=== PATIENT | male | born 1995 | race Two or more races ===

== ENCOUNTER 2024-02-17 10:55 | Outpatient (AMB) | payer OTHER, SELFPAY ==
--- NOTE | 2024-02-17 11:27 | MHC.OFFWIV ---
Intake Vital Signs 02/17/24 11:28 Height 5 ft 11 in Weight 293 lb BMI 40.9 BP 130/90 H Blood Pressure Location Rt brachial Position Sitting Pulse 133 H Pulse Source Pulse Oximeter Temp 98.5 F Temp Source Oral Pulse Oximetry (%) 99 Oxygen Delivery Method Room Air Intake Visit Reasons: Runny nose, Congestion, Sore throat Intake Note: Patient here to get a work note as he was out for three days w/ runny nose, congestion and sore throat which was present for about 4 days. pt states he no longer has most symptoms but still is congested. Patient Tobacco Use Status: Never used Tobacco Allergies No Known Allergies Allergy (Verified 02/17/24 11:29) Do you need a note to return to daycare/school/sports/work: Yes HPI HPI Comments History of Present Illness Details Patient is a 28-year-old male complaining of 6 days of a sore throat, runny nose and head congestion. He states he went to [place] and he thinks he picked something up while he was there. He states he did test for COVID but was negative; he denies any sick contacts. He did call out from work sick starting last Saturday but feels much better now and needs a return to work note. Patient denies any medical history or taking any medications that could affect his heart rate, he states he has never been diagnosed with a thyroid disorder. FORMERLY [facility], [facility] Social History Patient Tobacco Use Status: Never used Tobacco Review of Systems Const All systems reviewed & are unremarkable except as noted in HPI and below Physical Exam Vital Signs: Last Vital Signs Temp 98.5 F 02/17/24 11:28 Pulse 133 H 02/17/24 11:28 BP 130/90 H 02/17/24 11:28 Pulse Ox 99 02/17/24 11:28 Oxygen Delivery Method Room Air 02/17/24 11:28 BMI result Body Mass Index 40.9 Const General: cooperative, healthy appearing, comfortable, no acute distress and well developed Orientation/consciousness: patient oriented x3 Limitations: no limitations HEENT Head: Yes normal to inspection Eyes General: appearance normal, both eyes and all related structures Neck Neck: Yes normal visual inspection and Yes full ROM Resp Effort & Inspection: normal respiratory effort and able to speak in complete sentences Skin General skin exam: no rashes or lesions noted Neuro General: patient oriented x3 Extrem General: Yes normal to inspection Assessment & Plan Assessment & Plan (1) URI (upper respiratory infection): Code(s): J06.9 - Acute upper respiratory infection, unspecified Qualifiers: URI type: unspecified viral URI Qualified Code(s): J06.9 - Acute upper respiratory infection, unspecified Plan: Heart rate is 133 upon recheck, it is regular, pt is well appearing on exam. Our records show he is on Focalin, and his elevated heart rate could be secondary to this medication. I recommended he follow up with his PCP as soon as possible. He tells me he does not have a primary care doctor but he has an appointment to establish care but not until next year. He states it is with the [facility] doctor but I do not see an appointment. I did send a message to the clerical and office support workers at [employer] to try to get him to establish care with one of the new PAs as soon as possible so he could have a workup for his tachycardia. Also wrote work note as patient requested. Plan See above Coding Level of Care Code New Pt Level 3 (30885) Diagnoses Viral upper respiratory tract infection J06.9 URI type: unspecified viral URI
[2024-02-17 11:28] VITALS: BP 130/90; PULSE 133; TEMP 36.9; O2SAT 99; BMI 40.9
== END 2024-02-17 12:22 | disposition home or self-care (01) ==
PROVIDERS: PCP Internal Medicine; Visit Provider Physician Assistant
DX: J06.9 Acute upper respiratory infection, unspecified (principal)
CPT/HCPCS: 99203

== ENCOUNTER 2025-06-14 11:42 | Emergency (ER) | payer OTHER, SELFPAY ==
--- OUTSIDE RECORDS SUMMARY | 2025-06-13 17:28 | XMS_ITS | Continuity of Care Document ---
Author Organization [facility] ter Address [address] [place] [id number]- Care Team Providers Care Vice President Network Development Name Role Phone Not on Staff, PCP Primary Care Physician Unavail able Encounter [facility] Date(s): 06/13/25 - 06/13/[address] [address]- Discharge Disposition: A-D/C Walkout Attending Physician: Not on Staff, Attending MD Admitting Physician: Not on Staff, Admitting MD Referring Physician: Not on Staff, Referring MD Encounter Type: Disch ES Allergies, Adverse Reactions, Alerts No Known Allergies Immunizations Given and Recorded Vaccine Date Status Refusal Reason influenza virus vaccine, inactivated 05/30/15 Give n influenza virus vaccine, inactivated 08/13/13 Give n influenza virus vaccine, inactivated 06/06/11 Give n influenza virus vaccine, inactivated 1 04/21/09 [facility] [place] Human Papillomavirus Vaccine 11/24/14 Given Human Papillomavirus Vaccine 08/13/13 Given Meningococcal Conjugate Vaccine 08/13/13 Given Meningococcal Conjugate Vaccine 2 11/13/07 Given influenza virus vaccine, live 3 04/21/09 Given Hepatitis B Vaccine (old term) 4 01/12/08 Given Varicella Virus Vaccine 5 11/13/07 Given Varicella Virus Vaccine 6 09/04/07 Given tetanus/diphtheria/pertussis, acel(Tdap) 7 08/02/06 Given Poliovirus Vaccine, Inactivated 8 07/25/99 Given Poliovirus Vaccine, Inactivated 9 06/05/96 Given Poliovirus Vaccine, Inactivated 10 95 Given Poliovirus Vaccine, Inactivated 11 95 Given diphtheria/tetanus/pertussis, acel(DTaP) 12 07/25/99 Given diphtheria/tetanus/pertussis, acel(DTaP) 13 10/09/96 Given diphtheria/tetanus/pertussis, acel(DTaP) 14 95 Given diphtheria/tetanus/pertussis, acel(DTaP) 15 95 Given diphtheria/tetanus/pertussis, acel(DTaP) 16 95 Given Measles/Mumps/Rubella Virus Vaccine 17 02/09/98 [facility] [place] Measles/Mumps/Rubella Virus Vaccine 18 06/15/96 [facility] [place] Haemophilus B conjugate (HbOC) vaccine 19 10/09/96 Given Haemophilus B conjugate (HbOC) vaccine 20 95 Given Haemophilus B conjugate (HbOC) vaccine 21 95 Given Haemophilus B conjugate (HbOC) vaccine 22 95 Given hepatitis B pediatric vaccine 23 95 Given hepatitis B pediatric vaccine 24 95 Given hepatitis B pediatric vaccine 25 95 Given 1Admin Note: VIS 02/15/2009 2Admin Note: VIS 05/13 3Admin Note: VIS 04/08/09 given 4Admin Note: VIS 01/15/01 ADM BY NELLIE Giang RN 5Admin Note: VIS 07/14 6Admin Note: GIVEN BY NURSE 7Admin Note: GIVEN BY NURSE 8Admin Note: GIVEN BY NURSE 9Admin Note: GIVEN BY NURSE 10Admin Note: GIVEN BY NURSE 11Admin Note: GIVEN BY NURSE 12Admin Note: GIVEN BY NURSE 13Admin Note: GIVEN BY NURSE 14Admin Note: GIVEN BY NURSE 15Admin Note: GIVEN BY NURSE 16Admin Note: GIVEN BY NURSE 17Admin Note: GIVEN BY NURSE 18Admin Note: GIVEN BY NURSE 19Admin Note: GIVEN BY NURSE 20Admin Note: GIVEN BY NURSE 21Admin Note: GIVEN BY NURSE 22Admin Note: GIVEN BY NURSE 23Admin Note: GIVEN BY NURSE 24Admin Note: GIVEN BY NURSE 25Admin Note: GIVEN BY NURSE Medications Alcohol Pads See Instructions, # 2 box, Refills 9, Tot. Refills 9, Maintenance, 1mo., 07/22/15 10:57:01 AM EST, Compound Start Date: 07/22/15 Stop Date: 05/17/16 Status: Ordered Medication Dispense Status: Completed Quantity: 2.0 Unit: box Total Allowed Fills: 10 Fills Dispensed: 0 Indications: Type 2 diabetes mellitus without complications; Alcohol Pads See Instructions, # 200 each, Refills 5, Tot. Refills 5, Maintenance, use as directed for Diabetes Mellitus, 10/16/16 11:20:00 AM EDT, Dx E11.65, Compound Start Date: 10/16/16 Stop Date: 04/14/17 Status: Ordered Medication Dispense Status: Completed Quantity: 200.0 Unit: each Total Allowed Fills: 6 Fills Dispensed: 0 benzoyl peroxide topical 5% gel 1 application, Topically, Daily, # 45 Gm, 5 Refills, Maintenance, 02/21/15 3:51:03 PM EDT, Gel, [facility]/pharmacy #[id number], 1 application Topically Daily Start Date: 02/21/15 Status: Ordered Medication Dispense Status: Completed Quantity: 45.0 Unit: g Total Allowed Fills: 6 Fills Dispensed: 0 Carafate 1 gm oral tablet 1 Gm, 1, tablet, By Mouth, 4 times a day, PRN, # 28 tablet, Refills 0, Tot. Refills 0, Maintenance,Indigestion, 01/23/25 5:53:00 PM EDT, Route to Pharmacy Electronically, [facility]/pharmacy #[id number], Partial fill upon patient request if the prescription is for a schedule II opioid drug., 179, cm, 01/23/25 14:25:00 EDT, Height, 116, kg, 01/23/25 14:25:00 EDT, Dry Weight Start Date: 01/23/25 Stop Date: 01/30/25 Status: Ordered Medication Dispense Status: Completed Quantity: 28.0 Unit: tablet Total Allowed Fills: 1 Fills Dispensed: 0 cetirizine 10 mg oral tablet 1 tablet = 10 mg, By Mouth, Daily, PRN allergy S/Sx, # 30 tablet, 5 Refills, Maintenance, 02/21/15 3:52:18 PM EDT, Tablet, [facility]/pharmacy #[id number] Start Date: 02/21/15 Stop Date: 08/20/15 Status: Ordered Medication Dispense Status: Completed Quantity: 30.0 Unit: tablet Total Allowed Fills: 6 Fills Dispensed: 0 clonidine 0.1 mg oral tablet 1 tablet = 0.1 mg, By Mouth, 2 times a day, 1 tab AT 3PM AND 1 TAB AT 7 PM, 0 Refills, Maintenance,2/6/14 10:10:12 AM EST Start Date: 08/13/13 Status: Ordered Medication Dispense Status: Completed Total Allowed Fills: 1 Fills Dispensed: 0 Concerta 54 mg oral tablet, extended release 2 tablet = 108 mg, By Mouth, Daily in AM, 0 Refills, Maintenance, 08/13/13 10:09:49 AM EST, ER Tablet Start Date: 08/13/13 Status: Ordered Medication Dispense Status: Completed Total Allowed Fills: 1 Fills Dispensed: 0 famotidine 20 mg oral tablet 20 mg, 1, tablet, By Mouth, 2 times a day, PRN, # 28 tablet, Refills 0, Tot. Refills 0, Maintenance, Indigestion, 01/23/25 5:53:00 PM EDT, Route to Pharmacy Electronically, [facility]/pharmacy #[id number], Partialfill upon patient request if the prescription is for a schedule II opioid drug., 179, cm, 01/23/25 14:25:00 EDT, Height, 116, kg, 01/23/25 14:25:00 EDT, Dry Weight Start Date: 01/23/25 Stop Date: 02/06/25 Status: Ordered Medication Dispense Status: Completed Quantity: 28.0 Unit: tablet Total Allowed Fills: 1 Fills Dispensed: 0 Freestyle Lite Lancets See Instructions, # 200 each, Refills 11, Tot. Refills 11, Maintenance, use as directed to test blood sugars before meals and at bedtime, and as needed 4- 5x/day, 10/16/16 11:20:00 AM EDT, Dx E11.65, Compound Start Date: 10/16/16 Stop Date: 10/11/17 Status: Ordered Medication Dispense Status: Completed Quantity: 200.0 Unit: each Total Allowed Fills: 12 Fills Dispensed: 0 Freestyle Lite Test Strips See Instructions, # 150 each, Refills 9, Tot. Refills 9, Maintenance, test BG before meals, bedtime, and as needed, 5x/day, dx e10.9, 01/04/16 8:17:02 AM EDT, Compound Start Date: 01/04/16 Status: Ordered Medication Dispense Status: Completed Quantity: 150.0 Unit: each Total Allowed Fills: 10 Fills Dispensed: 0 Indications: Type 1 diabetes mellitus without complications; Freestyle Lite Test Strips See Instructions, # 200 each, Refills 11, Tot. Refills 11, Maintenance, use as directed to test blood sugars before meals and at bedtime, and as needed 4- 5x/day, 10/16/16 11:20:00 AM EDT, Compound Start Date: 10/16/16 Stop Date: 10/11/17 Status: Ordered Medication Dispense Status: Completed Quantity: 200.0 Unit: each Total Allowed Fills: 12 Fills Dispensed: 0 Glucagon Emergency Kit See Instructions, # 1 kit, Refills 3, Tot. Refills 3, Maintenance, Use as directed to treat severe low blood sugar reaction, 04/18/16 1:55:00 PM EDT, Dx E10.65, Compound Start Date: 04/18/16 Status: Ordered Medication Dispense Status: Completed Quantity: 1.0 Unit: kit Total Allowed Fills: 4 Fills Dispensed: 0 Humalog Kwik Pen 100 units/mL subcutaneous injection See Instructions, Subcutaneous Infusion, Sliding scale 6-20 units/meal max 60 units/day.1mo., # 45 mL, 9 Refills, Maintenance, 01/04/16 8:18:13 AM EDT, [facility]/pharmacy #[id number], [place] please Start Date: 01/04/16 Stop Date: 10/30/16 Status: Ordered Medication Dispense Status: Completed Quantity: 45.0 Unit: mL Total Allowed Fills: 10 Fills Dispensed: 0 Indications: Type 1 diabetes mellitus without complications; Humalog Kwik Pen 100 units/mL subcutaneous injection 16-34 units per sliding scale, Subcutaneous Infusion, 3 times a day before meals, # 45 mL, 11 Refills, Maintenance, 10/16/16 11:20:00 AM EDT, [facility]/pharmacy #[id number], Dx E11.65 Start Date: 10/16/16 Stop Date: 10/11/17 Status: Ordered Medication Dispense Status: Completed Quantity: 45.0 Unit: mL Total Allowed Fills: 12 Fills Dispensed: 0 ibuprofen 600 mg oral tablet 1 tablet = 600 mg, By Mouth, Every 6 hours, PRN Pain , Moderate, # 30 tablet, 0 Refills, Maintenance, 09/14/14 2:40:24 PM EDT, Tablet, [facility]/pharmacy #[id number] Start Date: 09/14/14 Status: Ordered Medication Dispense Status: Completed Quantity: 30.0 Unit: tablet Total Allowed Fills: 1 Fills Dispensed: 0 Ketostix See Instructions, # 2 vials, Refills 11, Tot. Refills 11, Maintenance, check gluocse if BG >350.call [facility] if small or higher ketones., 01/04/16 8:15:55 AM EDT, [place] please, Compound Start Date: 01/04/16 Stop Date: 12/29/16 Status: Ordered Medication Dispense Status: Completed Quantity: 2.0 Unit: vials Total Allowed Fills: 12 Fills Dispensed: 0 Indications: Type 1 diabetes mellitus without complications; Lantus Solostar Pen 100 units/mL subcutaneous solution = 80 units, Subcutaneous Infusion, Daily at bedtime, # 30 mL, 11 Refills, Maintenance, 10/16/16 11:20:00 AM EDT, [facility]/pharmacy #[id number], Dx E11.65 Start Date: 10/16/16 Stop Date: 10/11/17 Status: Ordered Medication Dispense Status: Completed Quantity: 30.0 Unit: mL Total Allowed Fills: 12 Fills Dispensed: 0 Lantus Solostar Pen 100 units/mL subcutaneous solution = 70 units, Subcutaneous Infusion, Daily at bedtime, 1mo., # 10 mL, 9 Refills, Maintenance, 179:09:40 AM EDT, [facility]/pharmacy #[id number] Start Date: 09/28/16 Stop Date: 07/25/17 Status: Ordered Medication Dispense Status: Completed Quantity: 10.0 Unit: mL Total Allowed Fills: 10 Fills Dispensed: 0 Indications: Type 2 diabetes mellitus without complications; Pen D Lo, 32 G x 4 mm BD Ultra Fine III See instructions, # 120 each, Refills 9, Tot. Refills 9, Maintenance, 4 times daily injections.1mo., 01/04/16 8:19:08 AM EDT, Compound Start Date: 01/04/16 Stop Date: 10/30/16 Status: Ordered Medication Dispense Status: Completed Quantity: 120.0 Unit: each Total Allowed Fills: 10 Fills Dispensed: 0 Indications: Type 1 diabetes mellitus without complications; Vitamin D3 50,000 intl units oral capsule 1 capsule = 50,000 International_Units, By Mouth, Every week, # 8 capsule, 0 Refills, Maintenance, 12/29/14 2:31:24 PM EDT, Capsule, [facility] #[id number] Start Date: 12/29/14 Stop Date: 02/23/15 Status: Ordered Medication Dispense Status: Completed Quantity: 8.0 Unit: capsule Total Allowed Fills: 1 Fills Dispensed: 0 Mental Status Mental Status Assessment Assessment Assessment Component Result Effecti ve Date Mini coma score total 15 06/13/25 Mental Status Assessment Assessment Assessment Component Result Effecti ve Date Mini coma score total 15 06/13/25 Body height 180 06/13/25 Body weight 111 06/13/25 Scale weight (physical object) Standing s caryn 06/13/25 Dry body weight Measured 111 06/13/25 Problem List Condition Confirmation Course Effective Dates Status H ealth Status Informant Atopic dermatitis Confirmed Active Attention deficit hyperactivity disorder Confirmed Active Developmental delay Confirmed Active Diabetes Confirmed Active 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 Vital Signs Most recent to oldest [Reference Range]: 1 2 3 Height 180 cm (06/13/25 10:22 AM) 180 cm (06/13/25 9:26 AM) 180 cm (06/13/25 9:22 AM) Weight 111 kg (06/13/25 10:22 AM) 111 kg (06/13/25 9:26 AM) 111 kg (06/13/25 9:22 AM) Oxygen Saturation [94-100 %] 100 % (06/13/25 12:18 PM) 100 % (06/13/25 11:06 AM) 100 % (06/13/25 9:22 AM) Pulse Rate [55-90 bpm] 133 bpm *H* (06/13/25 12:18 PM) 126 bpm *H* (06/13/25 11:06 AM) 136 bpm *H* (06/13/25 9:22 AM) Body Mass Index [18.5-24.99 kg/m2] 34.26 kg/m2 *H* (06/13/25 9:26 AM) 34.26 kg/m2 *H* (06/13/25 9:22 AM) Blood Pressure [90-138/55-84 mm Hg] 143/88mm Hg *H* (06/13/25 12:18 PM) 143/94mm Hg *H* (06/13/25 11:06 AM) 145/104mm Hg *H* (06/13/25 9:22 AM) Respiratory Rate [16-30 br/min] 18 br/min (06/13/25 12:18 PM) 18 br/min (06/13/25 11:06 AM) 18 br/min (06/13/25 9:22 AM) Temperature [96.8-100.4 DegF] 98.6 DegF (06/13/25 12:18 PM) 98.5 DegF (06/13/25 11:06 AM) 98.4 DegF (06/13/25 9:22 AM) Mode of Delivery (Oxygen) Room air (06/13/25 12:18 PM) Room air (06/13/25 11:06 AM) Room air (06/13/25 9:22 AM) Blood pressure sites Arm, left (06/13/25 12:18 PM) Arm, left (06/13/25 11:06 AM) Arm, left (06/13/25 9:22 AM) Temperature Route Oral (06/13/25 12:18 PM) Oral (06/13/25 11:06 AM) Oral (06/13/25 9:22 AM) Dry Weight 111 kg (06/13/25 10:22 AM) 111 kg (06/13/25 9:26 AM) 111 kg (06/13/25 9:22 AM) Weight Obtained Via Standing scale (06/13/25 10:22 AM) Patient/family stated (06/13/25 9:22 AM) Dry Weight Obtained Via Patient/family s tated (06/13/25 9:22 AM) Social History Social History Type Response Smoking Status Smoker, current stat us unknown entered on: 11/24/14 Sex Sex Representation Male (finding) Status Not EKG study * Event Display: ECG 12-Lead Authored Date: Please click on pdf link to open report * Event Display: ECG 12-Lead Authored Date: Ventricular Rate: 134 BPM Atrial Rate: 134 BPM P-R Interval: 124 ms QRS Duration: 70 ms Q-T Interval: 304 ms QTC Calculation(Bazett): 453 ms P Dalton: 61 degrees R Dalton: 25 degrees T Dalton: 62 degrees Sinus tachycardia Nonspecific ST abnormality Abnormal ECG When compared with ECG of 23-Jan-2025 12:39, Minimal criteria for Inferior infarct are no longer Present Non-specific change in ST segment in Lateral leads Confirmed by Douglas Alas ([id number]) on 06/13/2025 10:17:08 AM [place]: Douglas Alas Patient Care team information Care Team Personnel Name: Not on Staff, PCP Position: S Physician (General Medicine) Member Role: PCP Care Team Related Persons Name: SAIGE RICKS Insurance Providers Guarantor name: [facility] Information #: 1 Payer: [employer] Payer Identifier: [id number] Member Number: [id number] Group Number: [id number] Subscriber Identifier: [id number] Relationship to Subscriber: self Coverage Type: Self-pay (Includes applicants for insurance and Medicaid applicants) Coverage Verification Date: NA Telecom: NA Address: NA
--- NOTE | ~2025-06-14 | XR_ITS ---
EXAMINATION: XR CHEST 1 VIEW HISTORY: SOB COMPARISON: There are no prior studies available for comparison. FINDINGS: A single PA view of the chest is submitted. The lungs are expanded and clear. There is no pleural effusion, pneumothorax, or pulmonary vascular congestion. The heart is normal in size. The bones are intact. XR/XR chest 1V IMPRESSION: Clear lungs. Electronically signed by: Miguel A Bowers MD 06/14/2025 12:28 PM LIZZIE
[2025-06-14 11:57] VITALS: BP 200/100; PULSE 132; RESP 18; TEMP 36.9; O2SAT 100; BMI 36.8
--- NOTE | 2025-06-14 12:02 | ECG_ITS ---
Test Reason : ABD PAIN Blood Pressure : */* mmHG Vent. Rate : 126 BPM Atrial Rate : 126 BPM P-R Int : 130 ms QRS Dur : 66 ms QT Int : 310 ms P-R-T Axes : 60 -8 47 degrees QTcB Int : 448 ms Sinus tachycardia Cannot rule out Inferior infarct , age undetermined Anteroseptal infarct , age undetermined Abnormal ECG No previous ECGs available Referred By: Yasmany Mckeon Electronically Signed By: RUDDY LANIER MD
--- NOTE | 2025-06-14 12:07 | ED.GENADULT ---
HPI - General Adult General Chief complaint: Abdominal Pain Stated complaint: multiple complaints Time Seen by Provider: 06/14/25 14:01 Source: patient Mode of arrival: ambulatory History of Present Illness ED Provider: HPI narrative: 30-year-old male with a history of diabetes on insulin, presenting with decreased p.o. intake he feels like it started after he ate a tuna, he also smokes marijuana, symptoms improved with showers, went to [facility] yesterday had blood work done and then has not had treatment because the prolonged wait times, pain in the epigastric area, no pain in the lower quadrants no dysuria or hematuria no headaches, visual changes weakness in upper or lower extremities no chest pain or shortness of breath reported. Denies using drugs except for marijuana, social drinker Related Data Home Medications ?Medication ?Instructions ?Recorded ?Confirmed dexmethylphenidate 25 mg 25 mg PO DAILY 02/17/24 capsule,extended release [id number] (Focalin XR) trazodone 50 mg tablet 50 mg PO BEDTIME 02/17/24 Previous Rx's ?Medication ?Instructions ?Recorded omeprazole 20 mg capsule,delayed 20 mg PO DAILY 14 days #14 caps 06/14/25 release ondansetron 4 mg disintegrating 4 mg PO Q8H PRN nausea and 06/14/25 tablet vomiting #4 tabs sucralfate 1 gram tablet (Carafate) 1 g PO Q6H 7 days #28 tabs 06/14/25 Allergies Allergy/AdvReac Type Severity Reaction Status Date / Time No Known Allergies Allergy Verified 06/14/25 12:02 [facility] Social History Social History Patient Tobacco Use Status: Never used Tobacco Smoked in Last 30 Days: No Use of substances other than those prescribed or required for medical reasons: Yes Substance Use Type: Marijuana Advance Directives: No Advance Directives Information Provided: Yes Do you have a plan to hurt others: No Plan Physical Exam ED Vital Signs: Vital Signs - 24 hr 06/14/25 11:57 06/14/25 14:06 06/14/25 14:56 Temperature 98.5 F 98.1 F Pulse Rate 132 H 116 H Respiratory Rate 18 20 Blood Pressure 200/100 H 167/95 H 167/95 H Pulse Oximetry 100 99 Oxygen Delivery Method Room Air Room Air 06/14/25 16:56 Temperature 97.5 F Pulse Rate 110 H Respiratory Rate 18 Blood Pressure 155/100 H Pulse Oximetry 98 Oxygen Delivery Method Room Air BMI result Body Mass Index 36.8 Course Course Course Narrative: RME: 30 yold male with pmh of DM presents to the ED RLQ abdominal pain, SoB, and hyperglycemia. labs, EKG, and chest xzray ordred Medications Administered Discontinued Medications Generic Name Dose Route Start Last Admin Trade Name [place] PRN Reason Stop Dose Admin Clonidine HCl 0.2 mg 06/14/25 14:35 06/14/25 14:56 Clonidine Hcl 0.2 Mg Tablet PO 06/14/25 14:36 0.2 mg ONCE ONE Administration Protocol Diazepam 2.5 mg 06/14/25 14:40 06/14/25 14:57 Diazepam 10 Mg/2 Ml Cartridge IVPUSH 06/14/25 14:41 2.5 mg STAT STA Administration Famotidine 20 mg 06/14/25 15:00 06/14/25 15:11 Famotidine/Pf 20 Mg/2 Ml Vial IVPUSH 06/14/25 15:01 20 mg ONCE ONE Administration Fluconazole 150 mg 06/14/25 14:42 06/14/25 14:54 Fluconazole 150 Mg Tablet PO 06/14/25 14:43 150 mg ONCE ONE Administration Lactated Ringer's 1,000 mls @ 0 mls/hr 06/14/25 14:45 06/14/25 16:31 Lr IV Infused .Q0M SUSHMA Infusion Wide Open Ceftriaxone Sodium 1 gm/ 50 mls @ 100 mls/hr 06/14/25 14:50 06/14/25 15:52 Sodium Chloride IV 06/14/25 15:19 Infused ONCE ONE Infusion Insulin Human Regular 12 unit 06/14/25 14:43 06/14/25 15:01 Insulin Regular, Human 100 Unit/Ml 10 Ml Vial IVPUSH 06/14/25 14:44 12 unit ONCE ONE Administration Lidocaine HCl 15 ml 06/14/25 14:40 06/14/25 14:55 Lidocaine Hcl Viscous 2 % 15 Ml Solution PO 06/14/25 14:41 15 ml ONCE ONE Administration Ondansetron HCl 4 mg 06/14/25 14:40 06/14/25 14:54 Ondansetron Hcl 4 Mg/2 Ml Vial IVPUSH 06/14/25 14:41 4 mg ONCE ONE Administration Medical Decision Making Medical Decision Making MDM Narrative: 2:44 PM 06/14/2025 (Dr. Anderson Dhaliwal): 30-year-old male presenting with nausea vomiting for the past 4 days went to [facility], had blood work done no treatment, left after prolonged stay, see results that are reviewed below, he has been having epigastric abdominal pain, smokes marijuana he states he just started smoking marijuana and sounds like his nausea symptoms improve with hot showers, so I discussed with the patient that he may be developing cyclic vomiting syndrome as well, he states he has been using his glucose and he appears to be taking clonidine for blood pressure, doses from the med list from [facility] and he is not able to tell me what medications he took his for his blood pressure but he is also on Adderall, and trazodone for sleep, no drug use reported. Blood work does not reveal increased anion gap, he was not acidotic yesterday, and he is not having any blood work changes suspect acidosis, KATLIN, or elevated anion gap, his beta hydroxybutyrate is only marginally elevated, I will plan for hydrating, IV insulin, medications for nausea or vomiting, I will provide clonidine, did not feel further imaging such as CT of abdomen and pelvis indicated this time he had no tenderness in the lower quadrants to suspect either appendicitis or diverticulitis or no right upper quadrant tenderness to suspect cholecystitis and his LFTs are reassuring, on exam he had direct mid point epigastric tenderness 2:49 PM 06/14/2025 (Dr. Anderson Dhaliwal): Patient's urinalysis yesterday showed budding yeast in the urine, today's urinalysis without bacteria, will cover him with fluconazole, he does have leukocytosis, and tachycardia which is likely due to dehydration and stress response, but we will obtain blood cultures and lactic, and we will cover with IV antibiotics for potential urinary infection 5:12 PM 06/14/2025 (Dr. Anderson Dhaliwal): Patient feels significantly better, has been drinking, states has good appetite, I discussed his workup with him, I do not feel that we need to further cover him on antibiotics until his cultures come back I did cover him with fluconazole based on [facility] results, otherwise we will plan for discharge Differential Diagnosis Differential Diagnoses: The differential diagnosis associated with the presentation includes (DKA, cyclic vomiting syndrome, UTI, electrolyte derangements, dehydration, hypertensive urgency) Admission/Observation Consideration of admission/observation: Escalation of care including admission/observation considered Lab Data MDM Lab Attestation statement: I reviewed the patient's lab results. 06/14/25 12:20 06/14/25 12:20 Labs: Lab Results 06/14/25 06/14/25 06/14/25 Range/Units 12:20 14:28 14:29 WBC 15.4 H (4.8-10.8) X10*3/uL RBC 6.01 H (4.60-5.80) X10*6/uL Hgb 16.7 (14.0-18.0) g/dl Hct 49.3 (42.0-52.0) % MCV 82.0 (80.0-98.0) fL MCH 27.8 (27.0-33.0) pg MCHC 33.9 (31.0-36.0) g/dl RDW 12.3 (11.0-16.0) % Plt Count 408 H (160-400) X10*3/uL MPV 11.6 (9.4-12.4) fL Immature Gran % (Auto) 0.4 (0.0-0.4) % Neut % (Auto) 77.3 H (45-73) % Lymph % (Auto) 14.5 L (20-40) % [place] % (Auto) 6.2 (2-11) % Eos % (Auto) 0.4 (0-4) % Baso % (Auto) 1.2 (0-2) % Lymph # (Auto) 2.2 (1.2-4.9) X10*3/uL [place] # (Auto) 1.0 (0.1-1.2) X10*3/uL Eos # (Auto) 0.1 (0.0-0.4) X10*3/uL Baso # (Auto) 0.2 (0.0-0.2) X10*3/uL Abs Immat Gran (auto) 0.06 H (0.00-0.03) X10*3/uL Absolute Neuts (auto) 11.9 H (2.0-8.3) x10*3/uL Absolute Nucleated RBC 0.000 (0.0-0.012) X10*3/uL Nucleated RBC % (auto) 0.0 (0.0-0.2) /100WBC PT 13.1 (11.2-13.5) SEC INR 1.1 (0.9-1.1) APTT 34.3 H (26.7-34.1) SEC Sodium 131 L (135-145) mmol/L Potassium 3.9 (3.3-5.1) mmol/L Chloride 94 L (96-108) mmol/L Carbon Dioxide 24 (22-29) mmol/L Anion Gap 17 (12-20) BUN 18 H (9-16) mg/dL Creatinine 0.93 (0.5-1.4) mg/dL Estim Creat Clear Calc 152.8 Estimated GFR > 60 POC Glucose 412 H* (60-115) mg/dL Random Glucose 405 H* (60-115) mg/dL Lactic Acid (0.5-2.0) mmol/L Calcium 9.4 (8.4-10.2) mg/dL Total Bilirubin 0.8 (0.0-1.0) mg/dL AST 17 (5-37) U/L ALT 25 (0-40) U/L Alkaline Phosphatase 86 (39-117) U/L Troponin I High Sens < 2.7 (<3.5-35.0) ng/L Total Protein 8.9 H (6.5-8.0) g/dL Albumin 4.9 (3.5-5.0) g/dL Beta-Hydroxybutyrate 3.35 H (0.02-0.27) mmol/L Urine Color Yellow Urine Appearance Clear Urine pH 5.5 (5.0-9.0) Ur Specific [place] >= 1.030 H (1.005-1.025) Urine Protein 30 (1+) H (Neg-Trace) mg/dL Urine Glucose (UA) >=1000 H (Negative) mg/dL Urine Ketones >=160 (Negative) mg/dL Urine Blood Moderate (2+) H (Negative) Urine Nitrite Negative (Negative) Ur Leukocyte Esterase Negative (Negative) Urine RBC 6-10 H (0-2) /HPF Urine WBC 6-10 H (0-5) /HPF Ur Squamous Epith Cells 0-2 (0-2) /HPF Urine Bacteria None Seen (None Seen) Hyaline Casts 0-2 (0-2) /LPF COVID-19 (EDDIE) Negative (Negative) COVID-19 Clin Com See Note Influenza Type A (GENIE) Negative (Negative) Influenza Type B (GENIE) Negative (Negative) Influenza A & B Note See Note 06/14/25 06/14/25 Range/Units 15:16 15:50 WBC (4.8-10.8) X10*3/uL RBC (4.60-5.80) X10*6/uL Hgb (14.0-18.0) g/dl Hct (42.0-52.0) % MCV (80.0-98.0) fL MCH (27.0-33.0) pg MCHC (31.0-36.0) g/dl RDW (11.0-16.0) % Plt Count (160-400) X10*3/uL MPV (9.4-12.4) fL Immature Gran % (Auto) (0.0-0.4) % Neut % (Auto) (45-73) % Lymph % (Auto) (20-40) % [place] % (Auto) (2-11) % Eos % (Auto) (0-4) % Baso % (Auto) (0-2) % Lymph # (Auto) (1.2-4.9) X10*3/uL [place] # (Auto) (0.1-1.2) X10*3/uL Eos # (Auto) (0.0-0.4) X10*3/uL Baso # (Auto) (0.0-0.2) X10*3/uL Abs Immat Gran (auto) (0.00-0.03) X10*3/uL Absolute Neuts (auto) (2.0-8.3) x10*3/uL Absolute Nucleated RBC (0.0-0.012) X10*3/uL Nucleated RBC % (auto) (0.0-0.2) /100WBC PT (11.2-13.5) SEC INR (0.9-1.1) APTT (26.7-34.1) SEC Sodium (135-145) mmol/L Potassium (3.3-5.1) mmol/L Chloride (96-108) mmol/L Carbon Dioxide (22-29) mmol/L Anion Gap (12-20) BUN (9-16) mg/dL Creatinine (0.5-1.4) mg/dL Estim Creat Clear Calc Estimated GFR POC Glucose 278 H (60-115) mg/dL Random Glucose (60-115) mg/dL Lactic Acid 1.4 (0.5-2.0) mmol/L Calcium (8.4-10.2) mg/dL Total Bilirubin (0.0-1.0) mg/dL AST (5-37) U/L ALT (0-40) U/L Alkaline Phosphatase (39-117) U/L Troponin I High Sens (<3.5-35.0) ng/L Total Protein (6.5-8.0) g/dL Albumin (3.5-5.0) g/dL Beta-Hydroxybutyrate (0.02-0.27) mmol/L Urine Color Urine Appearance Urine pH (5.0-9.0) Ur Specific [place] (1.005-1.025) Urine Protein (Neg-Trace) mg/dL Urine Glucose (UA) (Negative) mg/dL Urine Ketones (Negative) mg/dL Urine Blood (Negative) Urine Nitrite (Negative) Ur Leukocyte Esterase (Negative) Urine RBC (0-2) /HPF Urine WBC (0-5) /HPF Ur Squamous Epith Cells (0-2) /HPF Urine Bacteria (None Seen) Hyaline Casts (0-2) /LPF COVID-19 (EDDIE) (Negative) COVID-19 Clin Com Influenza Type A (GENIE) (Negative) Influenza Type B (GENIE) (Negative) Influenza A & B Note Independent Interpretation I performed an independent interpretation of an: Plain X-Ray (My independent chest xray interpretation: Lungs: Lungs are clear bilaterally without evidence of focal consolidation, pleural effusion, or pneumothorax. Cardiac silhouette is unremarkable, no obvious mediastinal widening, no obvious bony abnormalities such as fractures. Impression: Normal chest X-r) Radiology Impression Discussion of test interpretation with radiology: I have reviewed the radiologist's reading. ( XR/XR chest 1V IMPRESSION: Clear lungs.) External Record Review External record reviewed: Outside ED record I reviewed blood work obtained 06/13/2025 at 13:17 at [facility], urinalysis with some ketones 4+ glucose, trace leukocytes, slight bacteria some budding yeast, no cultures done Influenza, RSV COVID-19 negative Sodium 131, potassium 3.6, chloride 91, bicarb 20, gap 20, glucose 450, beta hydroxybutyrate 2.27, BUN 19, creatinine 0.76 WBC 14.5, H&H 16.4/49 Venous pH 7.34 Critical Care Time Critical Care Time Total Critical Care Time: 45 Attestation: Time is exclusive of separately billable procedures. Time includes: direct patient care, patient reassessment, coordination of patient care, interpretation of data (laboratory data, pulse oximetry, arterial blood gases and chest xrays), review of patient's medical records, medical consultation and documentation of patient care. Procedures excluded from critical care time: central intravenous line placement and electrocardiography. Discharge Plan Discharge Clinical Impression: Poorly controlled diabetes mellitus, Dehydration, Abdominal pain, epigastric, Hypertension Patient Disposition: Home, Self-Care Additional Instructions: Your blood pressure improved when you felt better, your glucose improved with fluids and intravenous insulin, continue using metformin and your sliding scale insulin, using omeprazole before bedtime, for the next 1 week Carafate 1 pill 20 minutes before any meals Zofran as needed for nausea and vomiting, as I recommend did completely stop smoking marijuana, when you do have episodes of nausea you can go ahead take a hot shower and also 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 and you can rub it over the stomach area make sure you do not get any ointment in your eyes or groin area as it will burn, follow up with the PCP, stay well hydrated both water and electrolyte solutions, take your medications including medications you take for high blood pressure follow up with the PCP any other issues concerns come back to the ER Prescriptions: New sucralfate [Carafate] 1 gram tablet 1 g PO Q6H 7 Days Qty: 28 0RF ondansetron 4 mg tablet,disintegrating 4 mg PO Q8H PRN (Reason: nausea and vomiting) Qty: 4 0RF omeprazole 20 mg capsule,delayed release(DR/EC) 20 mg PO DAILY 14 Days Qty: 14 0RF No Action trazodone 50 mg tablet 50 mg PO BEDTIME dexmethylphenidate [Focalin XR] 25 mg capsule,ER biphasic 50-50 25 mg PO DAILY Referrals: Gayle Montilla PA-C [Primary Care Provider, Internal Medicine] - 10 days Clinical Impression: Abdominal pain, epigastric; Poorly controlled diabetes mellitus; Hypertension; Dehydration Stand Alone Forms: Work/School Release Interventions: ED Discharge Assessment Last Done: 06/14/25 17:52 Discharge Date/Time: 06/14/25 17:52 Print Language: Latvian
[2025-06-14 12:26] LABS: MANUAL DIFF FLAG NO
[2025-06-14 12:27] LABS: Hematocrit 49.3 % (42.0-52.0); Hemoglobin 16.7 g/dl (14.0-18.0); Imm Gran Abs Auto 0.06 X10*3/uL (0.00-0.03); Imm Gran Pct Auto 0.4 % (0.0-0.4); Lymphocytes Absolute Auto 2.2 X10*3/uL (1.2-4.9); Mean Corpuscular HGB Conc 33.9 g/dl (31.0-36.0); Mean Corpuscular Hemoglobin 27.8 pg (27.0-33.0); Mean Corpuscular Volume 82.0 fL (80.0-98.0); NRBC Abs Auto 0.000 X10*3/uL (0.0-0.012); NRBC Pct Auto 0.0 /100WBC (0.0-0.2); Platelet Count 408 X10*3/uL (160-400); Red Blood Count 6.01 X10*6/uL (4.60-5.80); White Blood Count 15.4 X10*3/uL (4.8-10.8)
[2025-06-14 12:36] LABS: INTERNATIONAL NORM RATIO 1.1 (0.9-1.1); Prothrombin Time 13.1 SEC (11.2-13.5)
[2025-06-14 12:38] LABS: Partial Thromboplastin Time 34.3 SEC (26.7-34.1)
[2025-06-14 12:50] LABS: COVID-19 Test Negative (Negative); IDNOW Serial# 55D5AD1C; IDNOW Serial# 58CA691E; Influenza B2 Negative (Negative)
[2025-06-14 12:57] LABS: Alanine Aminotransferase 25 U/L (0-40); Albumin Level 4.9 g/dL (3.5-5.0); Alkaline Phosphatase 86 U/L (39-117); Anion Gap 17 (12-20); Aspartate Amino Transferase 17 U/L (5-37); Blood Urea Nitrogen 18 mg/dL (9-16); Calcium 9.4 mg/dL (8.4-10.2); Carbon Dioxide 24 mmol/L (22-29); Chloride 94 mmol/L (96-108); Creatinine Clr Calc Pharmacy 152.8; Estimated Glomerular Filt Rate > 60; Potassium 3.9 mmol/L (3.3-5.1); Sodium 131 mmol/L (135-145); Total Protein 8.9 g/dL (6.5-8.0)
[2025-06-14 13:08] LABS: Troponin-I High Sensitivity < 2.7 ng/L (<3.5-35.0)
[2025-06-14 14:06] VITALS: BP 167/95; PULSE 116; RESP 20; TEMP 36.7; O2SAT 99
[2025-06-14 14:33] LABS: Glucose, Whole Blood 412 mg/dL (60-115)
[2025-06-14 14:36] LABS: Appearance Urine Clear; Glucose Urine UA >=1000 mg/dL (Negative); PH 5.5 (5.0-9.0); Specific Gravity - Urine >= 1.030 (1.005-1.025); UMIC TRIGGER UACC YES
[2025-06-14 14:41] LABS: UACC Culture Trigger YES
[2025-06-14] MEDS: Lidocaine HCl Viscous 2 % 15 ML SOLUTION PO (14:55)
[2025-06-14 14:56] VITALS: BP 167/95
[2025-06-14] MEDS: diazePAM 10 MG/2 ML CARTRIDGE 2.5 MG IVPUSH (14:57)
[2025-06-14] MEDS: Lactated Ringers 1,000 ML 999 ML IV (15:01)
[2025-06-14 15:55] LABS: Glucose, Whole Blood 278 mg/dL (60-115)
[2025-06-14 16:56] VITALS: BP 155/100; PULSE 110; RESP 18; TEMP 36.4; O2SAT 98
[2025-06-14 17:52] VITALS: BP 155/100; PULSE 110; RESP 18; TEMP 36.4; O2SAT 98
== END 2025-06-14 17:52 | disposition home or self-care (01) ==
PROVIDERS: Physician Assistant; Emergency Provider Emergency Medicine
DX: E11.65 Type 2 diabetes mellitus with hyperglycemia (principal); E86.0 Dehydration; R10.9 Unspecified abdominal pain; R10.13 Epigastric pain; R11.2 Nausea with vomiting, unspecified; I10 Essential (primary) hypertension; Z03.818 Encounter for observation for suspected exposure to other biological agents ruled out; Z79.4 Long term (current) use of insulin
CPT/HCPCS: 36415; 71045; 80053; 81001; 82010; 82947; 83605; 84484; 85025; 85610; 85730; 87040; 87086; 87502; 87635; 93005; 96361; 96374; 96375; 99285; J0696; J1308; J2405; J3360; J7120

== ENCOUNTER → 2025-06-14 12:02 | Outpatient (BNV) | payer OTHER, SELFPAY | PROVIDERS: Emergency Provider Emergency Medicine; Visit Provider Internal Medicine Cardiovascular Disease | DX: R00.0 Tachycardia, unspecified (principal) | CPT/HCPCS: 93010 ==

== ENCOUNTER → 2025-06-14 12:05 | Outpatient (BNV) | payer OTHER, SELFPAY | PROVIDERS: Visit Provider Radiology Diagnostic Radiology | DX: R06.02 Shortness of breath (principal) | CPT/HCPCS: 71045 ==

== ENCOUNTER 2025-06-19 13:41 | Emergency (ER) | payer OTHER, SELFPAY ==
[2025-06-19 14:10] VITALS: BP 146/95; PULSE 114; RESP 16; TEMP 37; O2SAT 98; BMI 36.0
--- NOTE | 2025-06-19 14:10 | ED_ITS ---
HPI - Abdominal Pain General Chief Complaint: Abdominal Pain Stated Complaint: abd pain Time Seen by Provider: 06/19/25 19:41 History of Present Illness HPI narrative: Patient is a 30-year-old male with a history of marijuana use in the past. History of possibly marijuana induced nausea vomiting in the past. Denies using marijuana today. Complaining of nausea epigastric pain earlier patient was here at 01:00. By time I saw the patient it was about 20:00. The symptom has already relief. There is no fever no chills. There is positive bowel movement although not as good as usual. Passing gas. Patient from home. No travel history. Related Data Home Medications ?Medication ?Instructions ?Recorded ?Confirmed dexmethylphenidate 25 mg 25 mg PO DAILY 02/17/24 capsule,extended release -35 (Focalin XR) trazodone 50 mg tablet 50 mg PO BEDTIME 02/17/24 Previous Rx's ?Medication ?Instructions ?Recorded omeprazole 20 mg capsule,delayed 20 mg PO DAILY 14 day s #14 caps 06/14/25 release ondansetron 4 mg disintegrating 4 mg PO Q8H PRN nausea and 06/14/25 tablet vomiting #4 tabs sucralfate 1 gram tablet (Carafate) 1 g PO Q6H 7 days #28 tabs 06/14/25 Allergies Allergy/AdvReac Type Severity Reaction Status Date / Time No Known Allergies Allergy Verified 06/19/25 14:14 Review of Systems Review of Systems Positive abdominal pain Positive nausea earlier No chest pain or diaphoresis Yes all other systems are reviewed and are negative PMFSH Past Medical History Attestation statement: The following information was validated with the patient. Social History Social History Alcohol intake: current Alcohol intake frequency: holidays/special occasions only Patient Tobacco Use Status: Never used Tobacco Smoked in Last 30 Days: No Use of substances other than those prescribed or required for medical reasons: Yes Substance Use Type: Marijuana Substance Use Frequency: Chronic Longstanding Advance Directives: No Advance Directives Information Provided: No Do you have a plan to hurt others: No Plan Physical Exam ED Exam Exam: Appearance: Alert. Oriented X3. No acute distress. Eyes: Pupils equal, round and reactive to light. ENT: Pharynx normal. Neck: Normal inspection. Neck supple. No lymph nodes noted. No crepitus CVS: Normal heart rate and rhythm. Pulses normal. Normal S1 and S2 Respiratory: No respiratory distress. Breath sounds normal. No Wheezing. No rales Abdomen: Soft and nontender. No rigidity. No distention. good BS x4 Skin: Skin warm and dry. Normal skin color. Normal skin turgor. Extremities: No lower extremity edema. Neurovascular intact to all extremities. No Lacerations. No Rash Neuro: Oriented X 3. No motor deficit. No sensory deficit. Moving all extermities. No slurred speech Vital Signs: Vital Signs - 24 hr 06/19/25 14:10 06/19/25 18:31 Temperature 98.6 F 98.2 F Pulse Rate 114 H 111 H Respiratory Rate 16 18 Blood Pressure 146/95 H 145/94 H Pulse Oximetry 98 97 Oxygen Delivery Method Room Air Room Air BMI result Body Mass Index 36.0 Course Course Course Narrative: This is a RME preformed in triage by Ami Morse PA-C. Date:06/19/2025, time 211 pm. Patient presents with abd pain and n/v, was here saturday [place] ED, and [place] day prior, feels worse. Hx of DM on insulin. DX'd with epigastric pain, poorly controlled DM, HTN, and dehydration POC 412 to 278. does not check sugars at home. had yeast in urine put on fluconazole. no recent marijuana, missed endocrine appt Saturday to due N/V, has not rescheduled yet. Work UP: labs and u/a Will defer full ROS and PE to treating provider. Patient will continued to be monitored in the interim. Medical Decision Making Medical Decision Making [facility] Narrative: 30-year-old male presented today with having abdominal pain in the epigastric area. His sugar was elevated but his anion gap is normal. His bicarb is normal. Glucose is 291. Less likely is DKA today. Although patient's beta hydroxybutyrate is elevated his hemoglobin A1c is elevated at 10.5. Showing that patient is a poorly-controlled diabetic. LFT normal. Lipase is normal there is no evidence for pancreatitis. Explained to patient the need to monitor sugar carefully. He did not have any chest pain he denies having any shortness of breath with the have any diaphoresis he wants to go home his symptom has not completely resolved. Explained to patient his sugar was probably fairly high earlier. Patient at this time wants to go home does not want to give further testing. Given his pain is gone is well-appearing will discharge patient home advised patient to closely follow-up on an outpatient basis. Advised patient's drink lots of fluids. Patient tolerated fluids in the emergency department. Differential Diagnosis Differential Diagnoses: The differential diagnosis associated with the presentation includes Dehydration nausea vomiting Admission/Observation Consideration of admission/observation: Escalation of care including admission/observation considered Lab Data MDM Lab Attestation statement: I reviewed the patient's lab results. 06/19/25 14:24 06/19/25 14:24 Labs: Lab Results 06/19/25 Range/Units 14:24 WBC 14.3 H (4.8-10.8) X10*3/uL RBC 5.52 (4.60-5.80) X10*6/uL Hgb 15.6 (14.0-18.0) g/dl Hct 45.8 (42.0-52.0) % MCV 83.0 (80.0-98.0) fL MCH 28.3 (27.0-33.0) pg MCHC 34.1 (31.0-36.0) g/dl RDW 12.6 (11.0-16.0) % Plt Count 328 (160-400) X10*3/uL MPV 11.4 (9.4-12.4) fL Immature Gran % (Auto) 0.4 (0.0-0.4) % Neut % (Auto) 75.5 H (45-73) % Lymph % (Auto) 17.0 L (20-40) % [place] % (Auto) 5.2 (2-11) % Eos % (Auto) 0.8 (0-4) % Baso % (Auto) 1.1 (0-2) % Lymph # (Auto) 2.4 (1.2-4.9) X10*3/uL [place] # (Auto) 0.7 (0.1-1.2) X10*3/uL Eos # (Auto) 0.1 (0.0-0.4) X10*3/uL Baso # (Auto) 0.2 (0.0-0.2) X10*3/uL Abs Immat Gran (auto) 0.05 H (0.00-0.03) X10*3/uL Absolute Neuts (auto) 10.8 H (2.0-8.3) x10*3/uL Absolute Nucleated RBC 0.000 (0.0-0.012) X10*3/uL Nucleated RBC % (auto) 0.0 (0.0-0.2) /100WBC Sodium 136 (135-145) mmol/L Potassium 4.0 (3.3-5.1) mmol/L Chloride 100 (96-108) mmol/L Carbon Dioxide 24 (22-29) mmol/L Anion Gap 16 (12-20) BUN 9 (9-16) mg/dL Creatinine 0.88 (0.5-1.4) mg/dL Estim Creat Clear Calc 159.7 Estimated GFR > 60 Random Glucose 291 H (60-115) mg/dL Estimat Average Glucose 255 mg/dL Hemoglobin A1c % 10.5 H (<6.0) % Calcium 9.6 (8.4-10.2) mg/dL Magnesium 2.2 (1.6-2.6) mg/dL Total Bilirubin 0.5 (0.0-1.0) mg/dL AST 15 (5-37) U/L ALT 23 (0-40) U/L Alkaline Phosphatase 75 (39-117) U/L Total Protein 7.9 (6.5-8.0) g/dL Albumin 4.5 (3.5-5.0) g/dL Lipase 7 L (8-78) U/L Beta-Hydroxybutyrate 2.39 H (0.02-0.27) mmol/L Chronic Conditions Patient?s care impacted by: Diabetes Social Determinants Patient?s care significantly limited by Social Determinants of Health including: Alcoholism and drug addiction in family, Problems related to primary support group and Other Social Determinant of Health Discharge Plan Discharge Clinical Impression: Abdominal pain Patient Disposition: Home, Self-Care Instructions: Abdominal Pain (ED) Prescriptions: No Action sucralfate [Carafate] 1 gram tablet 1 g PO Q6H 7 Days Qty: 28 0RF ondansetron 4 mg tablet,disintegrating 4 mg PO Q8H PRN (Reason: nausea and vomiting) Qty: 4 0RF omeprazole 20 mg capsule,delayed release(DR/EC) 20 mg PO DAILY 14 Days Qty: 14 0RF trazodone 50 mg tablet 50 mg PO BEDTIME dexmethylphenidate [Focalin XR] 25 mg capsule,ER biphasic 50-50 25 mg PO DAILY Referrals: Gayle Montilla PA-C [Primary Care Provider, Internal Medicine] - 06/22/25 Print Language: Hebrew
[2025-06-19 14:29] LABS: MANUAL DIFF FLAG NO
[2025-06-19 14:30] LABS: Hematocrit 45.8 % (42.0-52.0); Hemoglobin 15.6 g/dl (14.0-18.0); Imm Gran Abs Auto 0.05 X10*3/uL (0.00-0.03); Imm Gran Pct Auto 0.4 % (0.0-0.4); Lymphocytes Absolute Auto 2.4 X10*3/uL (1.2-4.9); Mean Corpuscular HGB Conc 34.1 g/dl (31.0-36.0); Mean Corpuscular Hemoglobin 28.3 pg (27.0-33.0); Mean Corpuscular Volume 83.0 fL (80.0-98.0); NRBC Abs Auto 0.000 X10*3/uL (0.0-0.012); NRBC Pct Auto 0.0 /100WBC (0.0-0.2); Platelet Count 328 X10*3/uL (160-400); Red Blood Count 5.52 X10*6/uL (4.60-5.80); White Blood Count 14.3 X10*3/uL (4.8-10.8)
[2025-06-19 14:46] LABS: Alanine Aminotransferase 23 U/L (0-40); Albumin Level 4.5 g/dL (3.5-5.0); Alkaline Phosphatase 75 U/L (39-117); Anion Gap 16 (12-20); Aspartate Amino Transferase 15 U/L (5-37); Blood Urea Nitrogen 9 mg/dL (9-16); Calcium 9.6 mg/dL (8.4-10.2); Carbon Dioxide 24 mmol/L (22-29); Chloride 100 mmol/L (96-108); Creatinine Clr Calc Pharmacy 159.7; Estimated Glomerular Filt Rate > 60; Lipase 7 U/L (8-78); Magnesium 2.2 mg/dL (1.6-2.6); Potassium 4.0 mmol/L (3.3-5.1); Sodium 136 mmol/L (135-145); Total Protein 7.9 g/dL (6.5-8.0)
[2025-06-19 18:31] VITALS: BP 145/94; PULSE 111; RESP 18; TEMP 36.8; O2SAT 97
== END 2025-06-19 21:00 | disposition home or self-care (01) ==
PROVIDERS: Physician Assistant Medical; Emergency Provider Emergency Medicine Emergency Medical Services
DX: R10.13 Epigastric pain (principal); R11.0 Nausea; E11.9 Type 2 diabetes mellitus without complications; Z79.4 Long term (current) use of insulin
CPT/HCPCS: 36415; 80053; 82010; 83036; 83690; 83735; 85025; 99283; 99284